=== PATIENT | male | born 1970 | race Caucasian/White ===

== ENCOUNTER → 2023-05-15 10:15 | Outpatient (CLI) | payer OTHER, MEDICAID, SELFPAY ==
[2023-05-15 19:02] LABS: Cholesterol 138 mg/dL (140-199); HDL Cholesterol 48 mg/dL (40-60); LDL Cholesterol Calculated 80 mg/dL (<100); Triglycerides 49 mg/dL (35-150)
[2023-05-15 19:34] LABS: Prostate Specific Antigen Scrn 0.978 ng/mL (0.1-4.0)
[2023-05-16 17:37] LABS: Hep C Virus Ab w/Reflex Quant NEGATIVE s/c (NEGATIVE)
== END ==
PROVIDERS: PCP Physician Assistant; Visit Provider Physician Assistant
DX: Z13.6 Encounter for screening for cardiovascular disorders (principal); Z12.5 Encounter for screening for malignant neoplasm of prostate; Z11.59 Encounter for screening for other viral diseases; M25.511 Pain in right shoulder
CPT/HCPCS: 80061; 86803; G0103